=== PATIENT | male | born 1960 | race Caucasian/White ===

== ENCOUNTER 2018-09-17 18:57 | Emergency (ER) | payer OTHER ==
[~2018-09-17] VITALS: Ht 162.6 cm; Wt 120.2 kg
[~2018-09-17 18:57] MED LIST: AMLO5 PO; BUPR75 PO; Biaxin500 MG PO; Flagyl500 MG PO; OXYC5 PO; Omeprazole20 M1 PO; Percocet 5-3251 EACH PO; Zestril40 MG PO
[2018-09-17] MEDS ORDERED: GABA300T24 PO (19:07)
[2018-09-17] MEDS ORDERED: Tizanidine HCl2 MG (19:07)
[2018-09-17] MEDS ORDERED: Bactrim Ds Tab1 EACH PO (19:58)
== END 2018-09-17 20:09 | disposition home or self-care (01) ==
LOC: ER 18:57
DX: S86.812A Strain of other muscle(s) and tendon(s) at lower leg level, left leg, initial encounter (principal); L02.412 Cutaneous abscess of left axilla; L03.112 Cellulitis of left axilla; M54.2 Cervicalgia; G89.29 Other chronic pain; Z88.1 Allergy status to other antibiotic agents; Z79.899 Other long term (current) drug therapy; Z87.891 Personal history of nicotine dependence; W22.8XXA Striking against or struck by other objects, initial encounter
CPT/HCPCS: 10160; 99283-25

== ENCOUNTER 2020-09-12 06:52 | Day surgery (SDC) | payer OTHER ==
[~2020-09-12] VITALS: Ht 167.6 cm; Wt 124.8 kg
[~2020-09-12 06:52] MED LIST changes: +Bactrim Ds Tab1 EACH PO; +GABA300T24 PO; +Tizanidine HCl2 MG
== END 2020-09-12 09:02 | disposition home or self-care (01) ==
LOC: ORSCSDS 06:52
PROVIDERS: Orthopaedic Surgery
PROC: 01N50ZZ Release Median Nerve, Open Approach (ICD-10-PCS; principal; 2020-09-12 08:00)
DX: G56.01 Carpal tunnel syndrome, right upper limb (principal); E66.01 Morbid (severe) obesity due to excess calories; Z68.41 Body mass index [BMI] 40.0-44.9, adult; Z79.899 Other long term (current) drug therapy
CPT/HCPCS: J2704

== ENCOUNTER 2021-06-09 06:14 | Day surgery (SDC) | payer OTHER ==
[~2021-06-09] VITALS: Ht 165.1 cm; Wt 132.4 kg
[~2021-06-09 06:14] MED LIST changes: +ACET500 PO; +NAPR500 PO; +VITAMIN D310 MC4 PO; +Vitamin B Comple1 EA PO
--- NOTE | 2021-06-09 06:33 | NUR ---
PT ADMITTED TO [facility]. AGREES WITH PLANNED SURGERY. LUNG SOUNDS CLEAR.
--- NOTE | 2021-06-09 09:59 | NUR ---
Patient up to Ambulate independently. Gait steady. Discharge instructions reviewed with patient. Patient verbalizes understanding. Copy given to patient to take home. History, Chart, Medications and Allergies reviewed before start of procedure.Discharged via wheelchair to private car for ride home. Patient States Post-Procedure ride home has been arranged.
== END 2021-06-09 10:01 | disposition home or self-care (01) ==
LOC: ORSCMMR 06:14 → ORD 07:30 → ORSCMMR 07:30
PROVIDERS: Surgery
PROC: 0WUF0JZ Supplement Abdominal Wall with Synthetic Substitute, Open Approach (ICD-10-PCS; principal; 2021-06-09 07:30)
DX: K42.0 Umbilical hernia with obstruction, without gangrene (principal); I10 Essential (primary) hypertension; E66.01 Morbid (severe) obesity due to excess calories; Z68.42 Body mass index [BMI] 45.0-49.9, adult; F41.9 Anxiety disorder, unspecified; Z79.899 Other long term (current) drug therapy
CPT/HCPCS: A9270; C1781; J0690; J1100; J2250; J2405; J2704; J3010; J7120

== ENCOUNTER 2022-03-18 10:37 | Day surgery (SDC) | payer OTHER ==
[~2022-03-18] VITALS: Ht 165.1 cm; Wt 137.1 kg
[2022-03-18] MEDS ORDERED: NAPR500 PO (11:22)
[2022-03-18] MEDS ORDERED: PERCOCET 10-321 EA10 PO (11:23)
--- NOTE | 2022-03-18 11:49 | NUR ---
03/18/22 [facility] 1132: 10 CC OF 2% LIDOCAINE AND EPINEPHRINE 1:100,000 INJECTED TO L WRIST AND HAND PREPROCEDURAL BY DR PERSAUD. TIMEOUT COMPLETED PRIOR TO INJECTION.
== END 2022-03-18 13:00 | disposition home or self-care (01) ==
LOC: ORSCSDS 10:37
PROVIDERS: Orthopaedic Surgery
PROC: 01N54ZZ Release Median Nerve, Percutaneous Endoscopic Approach (ICD-10-PCS; principal; 2022-03-18 11:45)
PROC: 0LN80ZZ Release Left Hand Tendon, Open Approach (ICD-10-PCS; principal; 2022-03-18 11:45)
DX: G56.02 Carpal tunnel syndrome, left upper limb (principal); M65.352 Trigger finger, left little finger; I10 Essential (primary) hypertension; E78.5 Hyperlipidemia, unspecified; F41.8 Other specified anxiety disorders; E66.01 Morbid (severe) obesity due to excess calories; Z68.42 Body mass index [BMI] 45.0-49.9, adult; G47.33 Obstructive sleep apnea (adult) (pediatric); Z68.43 Body mass index [BMI] 50.0-59.9, adult; E11.9 Type 2 diabetes mellitus without complications; Z87.891 Personal history of nicotine dependence; Z79.899 Other long term (current) drug therapy
CPT/HCPCS: 82947; J2250; J7120

== ENCOUNTER 2022-04-03 08:04 | Day surgery (SDC) | payer OTHER ==
[~2022-04-03] VITALS: Ht 165.1 cm; Wt 134.9 kg
[~2022-04-03 08:04] MED LIST changes: +OXYACE7.5T PO; +PERCOCET 10-321 EA10 PO
[2022-04-03 08:41] VITALS: BP 139/78
--- NOTE | 2022-04-03 10:43 | NUR ---
LATE ENTRY Ambulatory in Day Surgery History, Chart, Medications and Allergies reviewed before start of procedure. Pre-Op teaching done. Pt verbalizes understanding. Patient surgery canceled today. Will reschedule.
== END 2022-04-04 22:47 | disposition home or self-care (01) ==
LOC: ORSCMMR 08:04 → ORD 09:15 → ORSCMMR 09:15
DX: L05.91 Pilonidal cyst without abscess (principal); Z53.9 Procedure and treatment not carried out, unspecified reason
CPT/HCPCS: J1956; J7120

== ENCOUNTER 2023-10-11 12:12 | Emergency (ER) | payer OTHER ==
[~2023-10-11] VITALS: Ht 165.1 cm; Wt 127.0 kg
[~2023-10-11 12:12] MED LIST changes: +ACETAMINOPHEN500 MG PO; +DOXY100 PO; +Naproxen375 MG PO; +OLME20 PO; +Percocet 10-321 EACH PO
[2023-10-11 12:17] VITALS: BP 190/100
[2023-10-11] MEDS ORDERED: HYDROmorphone HCl/Pf 1MG SYR IV ONE (13:35)
[2023-10-11] MEDS ORDERED: Prednisone20 MG PO (14:58)
[2023-10-11] MEDS ORDERED: CYCL10 PO (14:58)
[2023-10-11] MEDS ORDERED: PredniSONE 20 MG Tab PO ONE (15:00)
== END 2023-10-11 15:44 | disposition home or self-care (01) ==
LOC: ER 12:12
DX: M54.12 Radiculopathy, cervical region (principal); I10 Essential (primary) hypertension; Z87.891 Personal history of nicotine dependence; Z88.0 Allergy status to penicillin; Z88.5 Allergy status to narcotic agent; Z88.8 Allergy status to other drugs, medicaments and biological substances; Z79.899 Other long term (current) drug therapy
CPT/HCPCS: 72040; 73030; 96374; 99283-25; J1170